=== PATIENT | male | born 2005 | race African-American/Black ===

== ENCOUNTER 2024-08-05 21:13 | Emergency (ER) | payer OTHER ==
[2024-08-05 21:19] VITALS: BP 150/96; O2SAT 98
--- NOTE | 2024-08-05 21:23 | ED Physician Documentation ---
PD HPI LOWER EXT INJURY - Stated complaint Stated Complaint: FALL/LEG PX - Chief complaint Chief Complaint: Trauma Ext - History obtained from History obtained from: Patient - History of Present Illness PD HPI LOW EXT INJURY LOCATION: Right, Lower leg Type of injury: Blunt / blow (he states a heavy object (100-150 lbs) fell against his yun while he was standing/wroking. marked pain initially and was able to stand up. [employer] Demonstrator wanted him evaluated so EMS to here.) PD PAST MEDICAL HISTORY - Past Medical History Past Medical History: No - Past Surgical History Past Surgical History: No - Allergies Allergies/Adverse Reactions: Allergies Allergy/AdvReac Type Severity Reaction Status Date / Time No Known Drug Allergies Allergy Verified 08/05/24 21:17 - Social History Does the pt smoke?: No Smoking Status: Never smoker - Immunizations Immunizations are current?: Yes PD ED PE NORMAL - Vitals Vital signs reviewed: Yes - General General: Alert and oriented X 3, No acute distress - Derm Derm: Normal color, Warm and dry - Extremities Extremities: Other (anterior mid tib/fib area tenderness soft tissue. No abrasions nor lacs. Able to dorsiflex though hurts. ANkle and foot not tender. ) Results - Vitals Vitals: Vital Signs - 24 hr 08/05/24 21:14 Temperature 36.4 C L Heart Rate 88 Respiratory 16 Rate Blood Pressure 150/96 H O2 Saturation 98 Oxygen O2 Source Room air PD Medical Decision Making - ED course Complexity details: considered differential (Heavy object fell against his yun in the standing position. It did not knock him over. He denies other injuries. Pain with walking and weightbearing. 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 EMS brought him here. X-ray is not showing any fractures.), d/w patient ED course: Contusion to the yun and will have soreness there in particular with the dorsiflexing muscles and soft tissue. Off duty tonight and possibly tomorrow. NSAIDs ice and elevate. Departure - Departure Disposition: 01 Home, Self Care Clinical Impression: Contusion, lower leg Condition: Stable Record reviewed to determine appropriate education?: Yes Instructions: ED Contusion Lower Ext Follow-Up: [facility] [Provider Group] Comments: Your x-ray appears normal without any signs of bony abnormality/fracture. Obviously you have the soft tissue injury and will have localized swelling and tenderness and the pain of the muscles that run in that area. This will likely give you pain with the step-off portion of walking and weightbearing. I would anticipate this improving within a day or 2 though there may be some element of muscle soreness for several days. Activity as tolerated. Off work the rest of this evening and likely tomorrow. Ice elevate and rest the area to reduce swelling. Ibuprofen or Tylenol as needed. Forms: PCP List, Activity restrictions
--- NOTE | 2024-08-05 21:33 | XRAY Report ---
PROCEDURE: Tib/Fib RT INDICATIONS: struck in mid yun by heavy object TECHNIQUE: 2 views of the tibia and fibula were acquired. COMPARISON: None. FINDINGS: Bones: No acute displaced fracture. No dislocation. Soft tissues: No suspicious calcifications IMPRESSION: No acute radiographic abnormality. If there is high concern for occult injury, consider repeat radiog truman or cross-sectional imaging. Reviewed by: Phani Aranda MD on 08/05/2024 9:31 PM PDT Approved by: Phani Aranda MD on 08/05/2024 9:31 PM PDT Station ID: [id number]
[2024-08-05] MEDS: IBUPROFEN 600 MG TABLET PO STA (21:35)
== END 2024-08-05 22:13 | disposition home or self-care (01) ==
LOC: ED 21:13
DX: S80.11XA Contusion of right lower leg, initial encounter (principal); W20.8XXA Other cause of strike by thrown, projected or falling object, initial encounter; Y92.139 Unspecified place military base as the place of occurrence of the external cause; Y99.1 Military activity
CPT/HCPCS: 73590; 99283; A9270